=== PATIENT | female | born 2000 ===

== ENCOUNTER 2019-06-30 10:35 | Outpatient (CLI) | payer BC ==
--- NOTE | 2019-06-30 11:13 | ULT ---
LIMITED RIGHT BREAST ULTRASOUND: Date: 06/30/19 PROVIDED CLINICAL HISTORY: Palpable abnormality. FINDINGS: Limited sonographic interrogation was performed of the right breast in the region of palpable concern at 7 o'clock. There is a circumscribed focus of diminished echogenicity measuring approximately 6.0 mm in greatest dimension at the 7 o'clock position of the right breast. This is wider than tall and d emonstrates smooth, nonlobulated margins, and no evidence for shadowing. This appears sonographically similar to multiple foci demonstrated within the left breast on comparison imaging of 02/19/17. IMPRESSION: 6 mm right breast mass at 7 o'clock. 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 Consider sonographic follow-up as clinically indicated. POS: OFF
== END 2019-06-30 10:36 | disposition home or self-care (01) ==
LOC: BICULT 10:35
DX: N63.13 Unspecified lump in the right breast, lower outer quadrant (principal)